=== PATIENT | male | born 1945 | race Caucasian/White ===

== ENCOUNTER 2017-10-22 09:43 | Inpatient (IN) ==
[2017-10-22] MEDS ORDERED: Sod Chloride 0.9% Inj 1,000 ML IV.SIG ONE (10:14)
[2017-10-22] MEDS ORDERED: Vancomycin Inj 1 GM/200 ML PIGGYBACK IV.SIG ONE (10:14)
--- NOTE | 2017-10-22 10:14 | ED ---
HPI General Chief complaint: Extremity Injury, Upper Stated complaint: Right hand pain Time Seen by Provider: 10/22/17 09:57 Source: patient, family and RN notes reviewed Mode of arrival: ambulatory History of Present Illness HPI narrative: 72yM presenting with right hand infection. The patient states that 4 days ago he had a Venofer injection and later that evening noticed redness and pain to his right hand. Since then, he says the area has gotten more swollen, painful, and the redness has spread up his forearm. Denies fever or chills but admits to nausea and 2-3 episodes of vomiting. (+) history of MRSA. Denies IVDA. Family history non-contributory. Related Data Home Medications Medication Instructions Recorded Confirmed No Known Home Medications 10/22/17 10/22/17 Allergies Allergy/AdvReac Type Severity Reaction Status Date / Time daptomycin [From Cubicin] Allergy Difficulty Verified 10/22/17 10:08 Breathing Review of Systems Except as stated in HPI: all other systems reviewed are negative Constitutional Denies fever(s) Eyes Denies blurry vision ENT Reports nasal congestion Cardiovascular Denies chest pain Respiratory Denies cough Gastrointestinal Reports nausea and Reports vomiting Genitourinary Denies dysuria Musculoskeletal Denies back pain Integumentary/Breasts Reports rash Neurologic Denies confusion Psychiatric Denies confusion PMFSH History History Provided By: Patient Medical History Medical History Myocardial infarction (Acute) Xzfkw-Xcytr-Axcxz disease (Acute) Surgical History Surgical History History of back surgery (Acute) Social History Social History Substance History: No History of Abuse Smoking Status: Never smoker How Often Do You Have a Drink Containing Alcohol: 2 to 4 times a month Recent Travel in [facility] within the Last 8 Weeks: No Recent Out of Country Travel within the Last 8 Weeks: No Exam Const General: healthy appearing and no acute distress [facility] Head: normocephalic and atraumatic Face and sinus: normal facial exam Eyes General: appearance normal, both eyes and all related structures Pupils: PERRL Chest Chest: normal inspection of the chest Resp Effort & Inspection: normal respiratory effort Auscultation: no rhonchi and no wheezes Cardio Rate: regular rate Rhythm: regular rhythm Other: Systolic murmur GI Inspection: non-distended Palpation: soft and nontender Skin Other: Erythema, tenderness, and swelling noted to right hand and forearm, circumferential with lymphangitic streaking up dorsum of forearm, no fluctuance , outlined with surgical marker by me Neuro General: alert, awake, oriented x3 and no focal motor deficits Extrem Other: Strong radial pulse and normal capillary refill to all digits Patient is able to flex/ extend all digits without difficulty, 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 Psych Affect: normal affect Course Initial Documented Vital Signs Temperature 98.2 F 10/22/17 09:46 Pulse Rate 88 10/22/17 09:46 Respiratory Rate 16 10/22/17 09:46 Blood Pressure 158/70 H 10/22/17 09:46 Pulse Oximetry 99 10/22/17 09:46 Last Documented Vital Signs Temperature 98.2 F 10/22/17 09:46 Pulse Rate 88 10/22/17 09:46 Respiratory Rate 16 10/22/17 09:46 Blood Pressure 158/70 H 10/22/17 09:46 Pulse Oximetry 99 10/22/17 09:46 Medical Decision Making [facility] Narrative Medical decision making narrative: Assessment: 72yM presenting with right hand swelling and pain Plan: IV Labs Antibiotics X-ray right hand Addendum: This patient cannot go home as he has circumferential cellulitis of the right hand with lymphangitic streaking up the arm. He will need IV antibiotics. Case discussed with family medicine residents, who will admit. Differential Diagnosis Differential Diagnosis: Differential diagnosis includes, but is not limited to: cellulitis/ recurrent MRSA infection, fracture Patient has no signs or symptoms of flexor tenosynovitis, septic joint, or abscess Lab Data Lab results reviewed: Yes I reviewed the patient's lab results. Result diagrams: 10/22/17 10:25 10/22/17 10:25 Lab Results 10/22/17 10/22/17 10/22/17 Range/Units 10:25 10:25 10:30 WBC 7.0 (4.0-11.0) th/mm3 RBC 4.71 (4.50-5.90) mil/mm3 Hgb 13.1 (13.0-17.0) gm/dL Hct 39.2 (39.0-51.0) % MCV 83.2 (80.0-100.0) fL MCH 27.8 (27.0-34.0) pg MCHC 33.4 (32.0-36.0) % RDW 20.5 H (11.6-17.2) % Plt Count 184 (150-450) th/mm3 MPV 7.7 (7.0-11.0) fL Prelim Diff (Auto) Slide review pending Neut % (Auto) 79.7 H (16.0-70.0) % Lymph % (Auto) 6.7 L (9.0-44.0) % [place] % (Auto) 12.3 H (0.0-8.0) % Eos % (Auto) 0.9 (0.0-4.0) % Baso % (Auto) 0.4 (0.0-2.0) % Neut # (Auto) 5.6 (1.8-7.7) th/mm3 Lymph # (Auto) 0.5 L (1.0-4.8) th/mm3 [place] # (Auto) 0.9 (0.0-0.9) th/mm3 Eos # (Auto) 0.1 (0.0-0.4) th/mm3 Baso # (Auto) 0.0 (0.0-0.2) th/mm3 WBC Differential . Diff Scan Auto diff confirmed Differential Comment . Ovalocytes 1+ H (None) Sodium 137 (136-145) meq/L Potassium 3.6 (3.5-5.1) meq/L Chloride 102 (98-107) meq/L Carbon Dioxide 28.3 (21.0-32.0) meq/L Anion Gap 7 (5-15) meq/L BUN 14 (7-18) mg/dL Creatinine 0.81 (0.60-1.30) mg/dL Estimated GFR Greater than 89 (>89) mL/min Random Glucose 135 H (74-106) mg/dL Lactic Acid 1.1 (0.4-2.0) mmol/L Calcium 8.7 (8.5-10.1) mg/dL Imaging Data Radiologist's impression: Hand X-Ray 10/22/17 10:14 CONCLUSION: 1. Soft tissue swelling over the dorsum of the hand with no radiopaque foreign body. 2. Osteoarthritic change. Discharge Plan Discharge Disposition Patient Disposition: 30 Still Patient Discharge Condition Condition: Stable Discharge Details Diagnosis: Cellulitis of hand, right Physicians Team ED Provider: Ara Freeman Rxs /Orders / Referrals /Forms Prescriptions: No Action No Known Home Medications RF: 0 Discharge Interventions Interventions: Vital Signs Last Done: 10/22/17 09:46 Status ED Status: With Doctor
[2017-10-22] MEDS ORDERED: Vancomycin Inj 1,000 MG in Sodium Chlor 0.9% Inj 250 ML IV.SIG ONE (10:30)
[2017-10-22 10:39] LABS: Baso % (Auto) 0.4 % (0.0-2.0); Eos # (Auto) 0.1 th/mm3 (0.0-0.4); Eos % (Auto) 0.9 % (0.0-4.0); Hematocrit 39.2 % (39.0-51.0); Hemoglobin 13.1 gm/dL (13.0-17.0); Lymph # (Auto) 0.5 th/mm3 (1.0-4.8); Lymph % (Auto) 6.7 % (9.0-44.0); Mean Corpuscular HGB Conc 33.4 % (32.0-36.0); Mean Corpuscular Hemoglobin 27.8 pg (27.0-34.0); Mean Corpuscular Volume 83.2 fL (80.0-100.0); Mean Platelet Volume 7.7 fL (7.0-11.0); Mono # (Auto) 0.9 th/mm3 (0.0-0.9); Mono % (Auto) 12.3 % (0.0-8.0); Neut # (Auto) 5.6 th/mm3 (1.8-7.7); Neut % (Auto) 79.7 % (16.0-70.0); Platelet Count 184 th/mm3 (150-450); Red Blood Count 4.71 mil/mm3 (4.50-5.90); Red Cell Distribution Width 20.5 % (11.6-17.2)
[2017-10-22 10:52] LABS: Anion Gap 7 meq/L (5-15); Blood Urea Nitrogen 14 mg/dL (7-18); Calcium 8.7 mg/dL (8.5-10.1); Carbon Dioxide 28.3 meq/L (21.0-32.0); Chloride 102 meq/L (98-107); Glomerular Filtration Rate Greater Than 89 mL/min (>89); Glucose,Random 135 mg/dL (74-106); Potassium 3.6 meq/L (3.5-5.1); Sodium 137 meq/L (136-145)
--- NOTE | 2017-10-22 10:59 | XR ---
EXAM DATE: 10/22/2017 10:47 AM EDT AGE/SEX: 72 years / Male INDICATIONS: Swelling, redness, and pain without trauma. CLINICAL DATA: This is the patient's initial encounter. Patient reports that signs and symptoms have been present for 3 days and indicates a pain score of 6/10. MEDICAL/SURGICAL HISTORY: None. None. COMPARISON: No prior exams available for comparison. FINDINGS: Multiple views of the right hand were obtained and demonstrate normal mineralization and alignment. T here is soft tissue swelling over the dorsum of the hand with no radiopaque foreign body. Degenerativ e changes are noted in the carpus greatest involving the radiocarpal joint with joint space loss, scl erosis and hypertrophic change. Degenerative changes are also noted in the interphalangeal joints. Th ere is no destructive change identified. CONCLUSION: 1. Soft tissue swelling over the dorsum of the hand with no radiopaque foreign body. 2. Osteoarthritic change. Electronically signed by: Mario Godinez MD 10/22/2017 10:57 AM EDT
[2017-10-22 11:40] LABS: Ovalocytes 1+
--- NOTE | 2017-10-22 11:56 | P.HPFP ---
History of Present Illness Service: Shady is a pleasant 72 year old male with PMH of MRSA infection of L abdomen, Diabetes and Osler Rendu Howard coming in with complaints of R arm pain. 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 The hand was swollen on night and the swelling increased everyday up his forearm. Today the swelling is up to his mid radius region. He describes the pain as sharp constant pain and rates it a 7/ 10 in severity. The pain seems to be constant but is aggravated when trying to use his fingers to pickle solution maker things and hand movements. The pain is relieved with ice pack applications. He has tried Aleve and Biofreeze with no relief. Denies any trauma to the R arm. Patient had some episodes of nausea and vomiting for the past two days. A couple times both days. Unsure of the color of emesis. He also said that he had an iron shot on afternoon. ROS positive for chills. Denies any fever, night sweats, chest pain, shortness of breath, ab pain , urinary symptoms. PMH: MRSA infection of L abdomen, Os[place] Rendu Howard, Diabetes, Low Iron, Osteoarthritis of the knee. PSH: Back Surgery (2014). Allergies: Cubicin (anaphylaxis) Med: Iron transfusions every 5-6 months. Aleve. Oxycodone 325 mg ( 1-3 a day). SH: Lives at home with . Feel safe at home. Sexually active with . Denies smoking cigarettes. Chews Tobacco one packet a day, Drinking:consumes 2- 3 beers a week, Drugs: none. Drove down from [place] to [facility] last night. Vaccinations: UTD. Has two dogs at home. <Alva Hicks - 10/22/17 19:30> Primary Care Physician: Yonatan Reid <Arabella Ortega - 10/22/17 20:50> Yonatan Reid <Alva Hicks - 10/22/17 11:56> - Diagnosis (1) Cellulitis of hand, right (2) Vqwrn-Mvemk-Uejpn disease (3) Diabetes (4) Arthritis (5) Nutrition, metabolism, and development symptoms (6) DVT prophylaxis <JordanArabella 10/22/17 20:50> (1) Cellulitis of hand, right (2) Ghrwx-Bemaj-Gmotv disease (3) Diabetes (4) Arthritis (5) Nutrition, metabolism, and development symptoms (6) DVT prophylaxis <KurtAlva 10/22/17 19:39> Review of Systems Constitutional: Reports chills, Denies fever(s), Denies headache(s), Denies weight gain, Denies weight loss <Alva Hicks 10/22/17 13:24> Cardiovascular: Denies chest pain <Alva Hicks 10/22/17 13:24> PMFSH - History History Provided By: Patient <Alva Hicks 10/22/17 11:56> - Medical History Medical History: Medical History (Last Updated 10/22/17 @ 10:10 by Porsha Diehl) Myocardial infarction Buxzi-Gxvak-Euhcs disease <Arabella Ortega 10/22/17 20:50> Medical History (Last Updated 10/22/17 @ 10:10 by Porsha Diehl) Myocardial infarction Qngxd-Ljjls-Bqmqc disease <Alva Hicks 10/22/17 11:56> - Surgical History Surgical History: Surgical History (Last Updated 10/22/17 @ 10:10 by Porsha Diehl) History of back surgery <Arabella Ortega 10/22/17 20:50> Surgical History (Last Updated 10/22/17 @ 10:10 by Porsha Diehl) History of back surgery <Alva Hicks 10/22/17 11:56> - Tobacco History Smoking Status: Never smoker <Alva Hicks 10/22/17 11:56> - Alcohol History How Often Do You Have a Drink Containing Alcohol: 2 to 4 times a month <Alva Hicks 10/22/17 11:56> - Substance Use History Substance History: No History of Abuse <Alva Hicks 10/22/17 11:56> - Travel History Recent Travel in the [facility] Within the Last 8 Weeks: No <Alva Hicks - 07/22/ 18 11:56> Recent Travel Out of the Country Within the Last 8 Weeks: No <Alva Hicks - 10/22/17 11:56> - Immunization History Tetanus Immunization: <5 Years <Alva Hicks - 10/22/17 11:56> Hx Influenza Vaccine This Season: No <Alva Hicks - 10/22/17 11:56> Medications and Allergies Allergies Allergy/AdvReac Type Severity Reaction Status Date / Time daptomycin [From Cubicin] Allergy Difficulty Verified 10/22/17 10:08 Breathing <Arabella Ortega - 10/22/17 20:50> Home Medications Medication Instructions Recorded Confirmed Type No Known Home Medications 10/22/17 10/22/17 History <Arabella Ortega - 10/22/17 20:50> Active Medications: Active Medications Acetaminophen (Tylenol) 650 mg PO Q6HR PRN PRN Reason: PAIN SCALE 1 TO 2 Al Hydroxide/Mg Hydroxide (Milk Of Magnesia Liq) 30 ml PO Q12H PRN PRN Reason: Mild Constipation Bisacodyl (Dulcolax Supp) 10 mg RECTAL DAILY PRN PRN Reason: SEVERE CONSITIPATION Dextrose (D50w Vial) 50 ml IV.PUSH UNSCH PRN PRN Reason: PER HYPOGLYCEMIA PROTOCOL Glucagon (Glucagon Inj) 1 mg OTHER PRN PRN PRN Reason: for Hypoglycemia Protocol Pharmacy Profile Note (Vancomycin Consult Pharmacy) 0 mls @ 0 mls/hr OTHER UNSCH OMI Vancomycin HCl 1,500 mg/ (Sodium Chloride) 515 mls @ 250 mls/hr IV.SIG Q12H OMI Last Admin: 10/22/17 17:59 Dose: 250 mls/hr Insulin Human Regular (Novolin R Correctional Sugar Inj) 0 units SQ ACHS AND 3AM OMI; Protocol Lactulose (Lactulose Liq) 30 ml PO DAILY PRN PRN Reason: SEVERE CONSITIPATION Miscellaneous Information ([facility] Ordered Lab Info) 0 each OTHER ONCE ONE Stop: 10/24/17 05:46 Naloxone HCl (Narcan Inj) 0.4 mg IV.PUSH UNSCH PRN PRN Reason: SEE LABEL COMMENTS Oxycodone/Acetaminophen (Percocet 10/325 Mg) 1 tab PO Q6H PRN PRN Reason: PAIN SCALE 6 TO 10 Oxycodone/Acetaminophen (Percocet 5/325 Mg) 1 tab PO Q6H PRN PRN Reason: PAIN SCALE 3 TO 5 Senna/Docusate Sodium (Leslie-Colace) 1 tab PO BID OMI Sennosides (Senokot) 17.2 mg PO Q12H PRN PRN Reason: Moderate Constipation Sodium Chloride (Ns Flush) 2 ml IV.FLUSH BID OMI Sodium Chloride (Ns Flush) 2 ml IV.FLUSH PRN PRN PRN Reason: FLUSH AFTER USING IV ACCESS Temazepam (Restoril) 15 mg PO HS PRN PRN Reason: INSOMNIA <Arabella Ortega - 10/22/17 20:50> Exam Vital signs: Vital Signs 10/22/17 09:46 10/22/17 12:00 10/22/17 13:30 Temperature 98.2 F Pulse Rate 88 82 78 Respiratory Rate 16 17 18 Blood Pressure 158/70 H 163/74 H 147/72 H Pulse Oximetry 99 99 99 10/22/17 16:00 10/22/17 20:00 Temperature 98.8 F 98.1 F Pulse Rate 96 H 91 H Respiratory Rate 18 18 Blood Pressure 157/74 H 156/81 H Pulse Oximetry 98 99 Intake & Output 10/22/17 10/22/17 10/23/17 06:59 18:59 06:59 Intake Total 1730 / 1730 Balance 1730 / 1730 Weight 83.915 kg Intake: IV 1250 / 1250 NS Inj 1,000 ML @ Wide Open IV. 1000 / 1000 SIG BOLUS ONE Rx#:[id number] Vancomycin Inj 1,000 MG In NS 250 / 250 Inj 250 ML @ 250 mls/hr IV.SIG ONCE ONE Rx#:[id number] Oral 480 / 480 Other: # Voids 1 # Bowel Movements 0 <Kimberly Ortegae - 10/22/17 20:50> Vital Signs 10/22/17 09:46 Temperature 98.2 F Pulse Rate 88 Respiratory Rate 16 Blood Pressure 158/70 H Pulse Oximetry 99 Intake & Output 10/21/17 10/22/17 10/22/17 18:59 06:59 18:59 Weight 83.915 kg <Alva Hicks - 10/22/17 11:56> - Routine HEENT Exam Head: Present: normocephalic, atraumatic <Alva Hicks - 10/22/17 17:47> - Routine Respiratory Exam Present: CTA bilaterally. Absent: rhonchi, wheezes <Alva Hicks - 17:47> - Routine Cardiovascular Exam Present: RRR, S1, S2 <Alva Hicks - 10/22/17 17:47> - Routine Abdominal Exam Present: soft, normoactive bowel sounds <Alva Hicks - 10/22/17 17:47> - Routine Skin Exam Comments: 13 cm erythematous swollen right hand that is warm to the touch and painful to palpation. The skin is taut and patient has limited movement of the hand. 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 Radial pulses are intact, faint but present, most likely due to the swelling of the hand. <Alva Hicks - 10/22/17 17:47> Results - Labs Result diagrams: 10/22/17 10:25 10/22/17 10:25 <Arabella Ortega - 10/22/17 20:50> Abnormal lab results 10/22/17 10/22/17 10/22/17 Range/Units 10:25 10:25 17:58 RDW 20.5 H (11.6-17.2) % Neut % (Auto) 79.7 H (16.0-70.0) % Lymph % (Auto) 6.7 L (9.0-44.0) % [place] % (Auto) 12.3 H (0.0-8.0) % Lymph # (Auto) 0.5 L (1.0-4.8) th/mm3 Ovalocytes 1+ H (None) POC Glucose 183 H (68-110) mg/dl Random Glucose 135 H (74-106) mg/dL Short CBC 10/22/17 Range/Units 10:25 WBC 7.0 (4.0-11.0) th/mm3 Hgb 13.1 (13.0-17.0) gm/dL Hct 39.2 (39.0-51.0) % Plt Count 184 (150-450) th/mm3 [facility] 10/22/17 10:25 Sodium 137 Potassium 3.6 Chloride 102 Carbon Dioxide 28.3 BUN 14 Creatinine 0.81 Calcium 8.7 <Arabella Ortega - 10/22/17 20:50> Abnormal lab results 10/22/17 10/22/17 Range/Units 10:25 10:25 RDW 20.5 H (11.6-17.2) % Neut % (Auto) 79.7 H (16.0-70.0) % Lymph % (Auto) 6.7 L (9.0-44.0) % [place] % (Auto) 12.3 H (0.0-8.0) % Lymph # (Auto) 0.5 L (1.0-4.8) th/mm3 Ovalocytes 1+ H (None) Random Glucose 135 H (74-106) mg/dL Short CBC 10/22/17 Range/Units 10:25 WBC 7.0 (4.0-11.0) th/mm3 Hgb 13.1 (13.0-17.0) gm/dL Hct 39.2 (39.0-51.0) % Plt Count 184 (150-450) th/mm3 BMP 10/22/17 10:25 Sodium 137 Potassium 3.6 Chloride 102 Carbon Dioxide 28.3 BUN 14 Creatinine 0.81 Calcium 8.7 <Alva Hicks - 10/22/17 11:56> - Imaging Impressions Forearm MRI 10/22/17 00:00 CONCLUSION: 1. Cellulitis of the forearm and hand, especially on the dorsal aspect without definite abscess formation. There is also an associated myositis of the distal forearm. No evidence for osteomyelitis. 2. 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 Hand X-Ray 10/22/17 10:14 CONCLUSION: 1. Soft tissue swelling over the dorsum of the hand with no radiopaque foreign body. 2. Osteoarthritic change. <Arabella Ortega - 10/22/17 20:50> Impressions Hand X-Ray 10/22/17 10:14 CONCLUSION: 1. Soft tissue swelling over the dorsum of the hand with no radiopaque foreign body. 2. Osteoarthritic change. <Alva Hicks - 10/22/17 11:56> Caprini VTE Risk Assessment Caprini VTE Risk Assessment: No/Low Risk (score <= 1) <Alva Hicks - 17:47> Caprini Risk Assessment Model: Point Value = 1 Point Value = 2 Point Value = 3 Point Value = 5 Age 41-60 Minor surgery BMI > 25 kg/m2 Swollen legs Varicose veins or History of unexplained or recurrent spontaneous Oral contraceptives or hormone replacement Sepsis (< 1 month) Serious lung disease, including pneumonia (< 1 month) Abnormal pulmonary function Acute myocardial infarction Congestive heart failure (< 1 month) History of inflammatory bowel disease Medical patient at bed rest Age 61-74 Arthroscopic surgery Major open surgery (> 45 min) Laparoscopic surgery (> 45 min) Malignancy Confined to bed (> 72 hours) Immobilizing plaster cast Central venous access Age >= 75 History of VTE Family history of VTE Factor V Leiden Prothrombin [id number] Lupus anticoagulant Anticardiolipin antibodies Elevated serum homocysteine Heparin-induced thrombocytopenia Other congenital or acquired thrombophilia Stroke (< 1 month) Elective arthroplasty Hip, pelvis, or leg fracture Acute spinal cord injury (< 1 month) <Arabella Ortega - 10/22/17 20:50> Point Value = 1 Point Value = 2 Point Value = 3 Point Value = 5 Age 41-60 Minor surgery BMI > 25 kg/m2 Swollen legs Varicose veins or History of unexplained or recurrent spontaneous Oral contraceptives or hormone replacement Sepsis (< 1 month) Serious lung disease, including pneumonia (< 1 month) Abnormal pulmonary function Acute myocardial infarction Congestive heart failure (< 1 month) History of inflammatory bowel disease Medical patient at bed rest Age 61-74 Arthroscopic surgery Major open surgery (> 45 min) Laparoscopic surgery (> 45 min) Malignancy Confined to bed (> 72 hours) Immobilizing plaster cast Central venous access Age >= 75 History of VTE Family history of VTE Factor V Leiden Prothrombin [id number] Lupus anticoagulant Anticardiolipin antibodies Elevated serum homocysteine Heparin-induced thrombocytopenia Other congenital or acquired thrombophilia Stroke (< 1 month) Elective arthroplasty Hip, pelvis, or leg fracture Acute spinal cord injury (< 1 month) <Alva Hicks - 10/22/17 11:56> Prophylaxis Regimen: Total Risk Factor Score Risk Level Prophylaxis Regimen 0-1 Low Early ambulation 2 Moderate Order ONE of the following: *Sequential Compression Device (SCD) *Heparin 5000 units SQ BID 3-4 Higher Order ONE of the following medications: *Heparin 5000 units SQ TID *Enoxaparin/Lovenox 40 mg SQ daily (WT < 150 kg, CrCl > 30 mL/min) *Enoxaparin/Lovenox 30 mg SQ daily (WT < 150 kg, CrCl > 10-29 mL/min) *Enoxaparin/Lovenox 30 mg SQ BID (WT < 150 kg, CrCl > 30 mL/min) AND/OR *Sequential Compression Device (SCD) 5 or more Highest Order ONE of the following medications: *Heparin 5000 units SQ TID (Preferred with Epidurals) *Enoxaparin/Lovenox 40 mg SQ daily (WT < 150 kg, CrCl > 30 mL/min) *Enoxaparin/Lovenox 30 mg SQ daily (WT < 150 kg, CrCl > 10-29 mL/min) *Enoxaparin/Lovenox 30 mg SQ BID (WT < 150 kg, CrCl > 30 mL/min) AND *Sequential Compression Device (SCD) <Arabella Ortega - 10/22/17 20:50> Total Risk Factor Score Risk Level Prophylaxis Regimen 0-1 Low Early ambulation 2 Moderate Order ONE of the following: *Sequential Compression Device (SCD) *Heparin 5000 units SQ BID 3-4 Higher Order ONE of the following medications: *Heparin 5000 units SQ TID *Enoxaparin/Lovenox 40 mg SQ daily (WT < 150 kg, CrCl > 30 mL/min) *Enoxaparin/Lovenox 30 mg SQ daily (WT < 150 kg, CrCl > 10-29 mL/min) *Enoxaparin/Lovenox 30 mg SQ BID (WT < 150 kg, CrCl > 30 mL/min) AND/OR *Sequential Compression Device (SCD) 5 or more Highest Order ONE of the following medications: *Heparin 5000 units SQ TID (Preferred with Epidurals) *Enoxaparin/Lovenox 40 mg SQ daily (WT < 150 kg, CrCl > 30 mL/min) *Enoxaparin/Lovenox 30 mg SQ daily (WT < 150 kg, CrCl > 10-29 mL/min) *Enoxaparin/Lovenox 30 mg SQ BID (WT < 150 kg, CrCl > 30 mL/min) AND *Sequential Compression Device (SCD) <Alva Hicks - 10/22/17 11:56> Assessment and Plan - Assessment (1) Cellulitis of hand, right Code(s): L03.113 - Cellulitis of right upper limb Status: Acute (2) Zmuzj-Kuneu-Cjgtc disease Code(s): 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 Swelling present 13 cm up his R forearm, about mid radius. Patient is currently afebrile but states he had chills yesterday. Possibly cellulitis. Started on vancomycin IV. Xray of Hand: Negative for any fractures or trauma MRI of right hand ordered. Continue to monitor for increased swelling of the hand and limited ROM. Follow Up CBC in AM. 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 Patient at increased risk of bleeding due to disorder. SCD's Only for DVT Prophylaxis. Continue current management. (3) Diabetes Code(s): E11.9 - Type 2 diabetes mellitus without complications Status: Acute Plan: Added Novolin sliding scale for coverage. Follow-up hemoglobin A1c and CMP in a.m. Monitor Blood Glucose Values Overnight (4) Arthritis Code(s): M19.90 - Unspecified osteoarthritis, unspecified site Status: Acute Plan: Osteoarthritis of Knees. Currently Stable. Continue Current regimen. (5) Nutrition, metabolism, and development symptoms Code(s): R63.8 - Other symptoms and signs concerning food and fluid intake Status: Acute Plan: Fluids: tolerating Po Electrolytes: Monitor and replete as needed Nutrition: Waiting on MRI status. If normal will place on a regular diet. GI Prophylaxis: None (6) DVT prophylaxis Status: Acute Plan: SCDs only <Alva Hicks - 10/22/17 19:39> - Attending Attestation Patient seen and examined this afternoon, discussed with resident team. I agree with assessment and management as documented and discussed with me. I certify that the inpatient services were ordered in accordance with Medicare regulations governing the order. This includes certification that hospital inpatient services are reasonable and necessary and in the case of services not specified as inpatient-only under 42 CFR 419.22(n), that they are appropriately provided as inpatient services in accordance to with the 2-midnight benchmark under 43 CFR 412.3(e) Pt admitted for right hand cellulitis. He has a known h/o MRSA. Additional documentation: ROS: + hand pain. + numbness/tingling in his Right fingers. No fevers. All other systems reviewed are negative. Pt has been started on IV antibiotics, specifically Vancomycin. MRI of forearm demonstrated no abscess, but did show myositis. Consider hand surgery consult. <Arabella Ortega - 10/22/17 20:50>
[2017-10-22] MEDS ORDERED: Bisacodyl 10 MG Supp RECTAL PRN (12:34)
[2017-10-22] MEDS ORDERED: Vancomycin Consult Pharmacy 1 EACH OTHER SCH (13:00)
[2017-10-22] MEDS ORDERED: Gadobutrol PF 10 MMOL/10 ML Vial (for RAD) IV.SIG ONE (17:35)
[2017-10-22] MEDS ORDERED: Dextrose 50% in Water 50 ML Vial IV.PUSH PRN (17:45)
[2017-10-22] MEDS: Vancomycin Inj 1,500 MG in Sodium Chlor 0.9% Inj 500 ML IV.SIG SCH (17:59)
--- NOTE | 2017-10-22 18:01 | MR ---
EXAM DATE: 10/22/2017 5:51 PM EDT AGE/SEX: 72 years / Male INDICATIONS: Pain, redness, and swelling right distal forearm and dorsal aspect of hand. No known i njury. CLINICAL DATA: This is the patient's initial encounter. Patient reports that signs and symptoms have been present for 2 days and indicates a pain score of 5/10. MEDICAL/SURGICAL HISTORY: . MRSA. Uxwmr-Gozer-Mxgqhc. ND Fusion, lumbar. COMPARISON: No prior exams available for comparison. TECHNIQUE: Multiplanar, multisequence MRI examination was performed without and with 8cc ml Gadavist (gadobutrol) contrast as single exam dose. FINDINGS: There is subcutaneous edema in the hand, especially on the dorsum of the hand and extending into the forearm especially dorsally. There is also some mild edema in the forearm musculature especially on t he dorsal aspect and in the interosseous region. No significant loculated fluid is identified to sugg est drainable abscess. There is no significant marrow signal abnormality to suggest osteomyelitis. Th ere is moderate to advanced osteoarthritis of the wrist joint especially on the radial aspect and to a lesser extent at the intercarpal joints and first carpometacarpal joint. CONCLUSION: 1. Cellulitis of the forearm and hand, especially on the dorsal aspect without definite abscess form ation. There is also an associated myositis of the distal forearm. No evidence for osteomyelitis. 2. 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 Electronically signed by: Tunde Kimble MD 10/22/2017 6:00 PM EDT
[2017-10-22] MEDS ORDERED: Naloxone Inj 0.4 MG/ML Vial IV.PUSH PRN (20:04)
[2017-10-22] MEDS ORDERED: Acetaminophen 325 MG Tablet PO PRN (20:04)
[2017-10-22] MEDS: Senna/Docusate Sodium 8.6/50 MG Tablet PO SCH (21:03)
[2017-10-22] MEDS: oxyCODONE/Acetaminophen 10/325 Tablet PO PRN (21:03)
[2017-10-22] MEDS: Insulin NovoLIN Regular Correctional Sugar Inj SQ SCH (21:13)
[2017-10-23] MEDS ORDERED: Naloxone Inj 0.4 MG/ML Vial IV.PUSH PRN (02:20)
[2017-10-23] MEDS ORDERED: Morphine Inj 4 MG/ML Vial IV.PUSH PRN (02:20)
[2017-10-23] MEDS: oxyCODONE/Acetaminophen 10/325 Tablet PO PRN ×5 (02:34→22:09)
[2017-10-23] MEDS: Insulin NovoLIN Regular Correctional Sugar Inj SQ SCH ×4 (02:39→16:58)
[2017-10-23] MEDS: Vancomycin Inj 1,500 MG in Sodium Chlor 0.9% Inj 500 ML IV.SIG SCH ×2 (06:20→17:09)
[2017-10-23 08:16] LABS: Baso % (Auto) 0.6 % (0.0-2.0); Eos # (Auto) 0.1 th/mm3 (0.0-0.4); Eos % (Auto) 1.8 % (0.0-4.0); Hematocrit 35.5 % (39.0-51.0); Hemoglobin 11.7 gm/dL (13.0-17.0); Lymph # (Auto) 0.9 th/mm3 (1.0-4.8); Lymph % (Auto) 14.8 % (9.0-44.0); Mean Corpuscular HGB Conc 33.1 % (32.0-36.0); Mean Corpuscular Hemoglobin 27.4 pg (27.0-34.0); Mean Corpuscular Volume 82.9 fL (80.0-100.0); Mono # (Auto) 0.8 th/mm3 (0.0-0.9); Mono % (Auto) 13.5 % (0.0-8.0); Neut # (Auto) 4.1 th/mm3 (1.8-7.7); Neut % (Auto) 69.3 % (16.0-70.0); Platelet Count 169 th/mm3 (150-450); Red Blood Count 4.28 mil/mm3 (4.50-5.90); Red Cell Distribution Width 19.9 % (11.6-17.2); White Blood Count 5.9 th/mm3 (4.0-11.0)
[2017-10-23] MEDS: Senna/Docusate Sodium 8.6/50 MG Tablet PO SCH (08:21)
[2017-10-23 08:42] LABS: Anion Gap 6 meq/L (5-15); Blood Urea Nitrogen 10 mg/dL (7-18); Calcium 8.3 mg/dL (8.5-10.1); Carbon Dioxide 27.2 meq/L (21.0-32.0); Chloride 104 meq/L (98-107); Glomerular Filtration Rate Greater Than 89 mL/min (>89); Glucose,Random 113 mg/dL (74-106); Potassium 3.6 meq/L (3.5-5.1); Sodium 137 meq/L (136-145)
--- NOTE | 2017-10-23 12:55 | P.PNFP ---
Subjective Interval history: Patient was seen and examined this morning. He still complains of swelling and pain in the right arm with movements. He feels as though the swelling is increasing up his right forearm. It is tender to palpation. He denies any nausea or vomiting overnight. No other events occurred overnight. He is unsure of his last tetanus shot. He denies any chest pain, fevers, shortness of breath, abdominal pain, problems with urination. All questions and concerns were answered this morning. <Alva Hicks - 10/23/17 13:11> Results - Labs Result diagrams: 10/23/17 07:07 10/23/17 07:07 <Arabella Ortega - 10/23/17 20:49> Abnormal lab results 10/22/17 10/23/17 10/23/17 Range/Units 21:10 02:38 07:07 RBC (4.50-5.90) mil/mm3 Hgb (13.0-17.0) gm/dL Hct (39.0-51.0) % RDW (11.6-17.2) % Childress % (Auto) (0.0-8.0) % Lymph # (Auto) (1.0-4.8) th/mm3 ESR 37 H (0-20) mm/hr POC Glucose 172 H 148 H (68-110) mg/dl Random Glucose (74-106) mg/dL Calcium (8.5-10.1) mg/dL 10/23/17 10/23/17 10/23/17 Range/Units 07:07 07:07 08:18 RBC 4.28 L (4.50-5.90) mil/mm3 Hgb 11.7 L (13.0-17.0) gm/dL Hct 35.5 L (39.0-51.0) % RDW 19.9 H (11.6-17.2) % Childress % (Auto) 13.5 H (0.0-8.0) % Lymph # (Auto) 0.9 L (1.0-4.8) th/mm3 ESR (0-20) mm/hr POC Glucose 118 H (68-110) mg/dl Random Glucose 113 H (74-106) mg/dL Calcium 8.3 L (8.5-10.1) mg/dL 10/23/17 10/23/17 10/23/17 Range/Units 11:29 16:40 20:28 RBC (4.50-5.90) mil/mm3 Hgb (13.0-17.0) gm/dL Hct (39.0-51.0) % RDW (11.6-17.2) % Childress % (Auto) (0.0-8.0) % Lymph # (Auto) (1.0-4.8) th/mm3 ESR (0-20) mm/hr POC Glucose 129 H 139 H 115 H (68-110) mg/dl Random Glucose (74-106) mg/dL Calcium (8.5-10.1) mg/dL Short CBC 10/23/17 Range/Units 07:07 WBC 5.9 (4.0-11.0) th/mm3 Hgb 11.7 L (13.0-17.0) gm/dL Hct 35.5 L (39.0-51.0) % Plt Count 169 (150-450) th/mm3 [facility] 10/23/17 07:07 Sodium 137 Potassium 3.6 Chloride 104 Carbon Dioxide 27.2 BUN 10 Creatinine 0.67 Calcium 8.3 L <Arabella Ortega - 10/23/17 20:49> Abnormal lab results 10/22/17 10/22/17 10/23/17 Range/Units 17:58 21:10 02:38 RBC (4.50-5.90) mil/mm3 Hgb (13.0-17.0) gm/dL Hct (39.0-51.0) % RDW (11.6-17.2) % Childress % (Auto) (0.0-8.0) % Lymph # (Auto) (1.0-4.8) th/mm3 ESR (0-20) mm/hr POC Glucose 183 H 172 H 148 H (68-110) mg/dl Random Glucose (74-106) mg/dL Calcium (8.5-10.1) mg/dL 10/23/17 10/23/17 10/23/17 Range/Units 07:07 07:07 07:07 RBC 4.28 L (4.50-5.90) mil/mm3 Hgb 11.7 L (13.0-17.0) gm/dL Hct 35.5 L (39.0-51.0) % RDW 19.9 H (11.6-17.2) % Childress % (Auto) 13.5 H (0.0-8.0) % Lymph # (Auto) 0.9 L (1.0-4.8) th/mm3 ESR 37 H (0-20) mm/hr POC Glucose (68-110) mg/dl Random Glucose 113 H (74-106) mg/dL Calcium 8.3 L (8.5-10.1) mg/dL 10/23/17 10/23/17 Range/Units 08:18 11:29 RBC (4.50-5.90) mil/mm3 Hgb (13.0-17.0) gm/dL Hct (39.0-51.0) % RDW (11.6-17.2) % Childress % (Auto) (0.0-8.0) % Lymph # (Auto) (1.0-4.8) th/mm3 ESR (0-20) mm/hr POC Glucose 118 H 129 H (68-110) mg/dl Random Glucose (74-106) mg/dL Calcium (8.5-10.1) mg/dL Short CBC 10/23/17 Range/Units 07:07 WBC 5.9 (4.0-11.0) th/mm3 Hgb 11.7 L (13.0-17.0) gm/dL Hct 35.5 L (39.0-51.0) % Plt Count 169 (150-450) th/mm3 BMP 10/23/17 07:07 Sodium 137 Potassium 3.6 Chloride 104 Carbon Dioxide 27.2 BUN 10 Creatinine 0.67 Calcium 8.3 L <Alva Hicks - 10/23/17 12:55> - Imaging Impressions Forearm MRI 10/22/17 00:00 CONCLUSION: 1. Cellulitis of the forearm and hand, especially on the dorsal aspect without definite abscess formation. There is also an associated myositis of the distal forearm. No evidence for osteomyelitis. 2. 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 <Alva Hicks - 10/23/17 12:55> Physical Exam Vital signs: Vital Signs 10/23/17 00:00 10/23/17 04:00 10/23/17 07:15 Temperature 98.3 F 97.5 F L Pulse Rate 76 73 Respiratory Rate 18 18 16 Blood Pressure 142/65 H 126/58 L Pulse Oximetry 97 95 10/23/17 09:56 10/23/17 12:24 10/23/17 15:16 Temperature 97.7 F 97.1 F L 98 F Pulse Rate 76 80 74 Respiratory Rate 19 19 19 Blood Pressure 127/64 132/63 136/65 Pulse Oximetry 99 100 97 Intake & Output 10/23/17 10/23/17 10/24/17 06:59 18:59 06:59 Intake Total 515 / 515 1475 / 1475 Balance 515 / 515 1475 / 1475 Intake: IV 515 / 515 515 / 515 Vancomycin Inj 1,500 MG In NS 515 / 515 515 / 515 Inj 500 ML @ 250 mls/hr IV.SIG Q12H OMI Rx#:[id number] Oral 960 / 960 Other: # Voids 1 2 # Bowel Movements 1 Weight On Admission 83.915 kg <Arabella Ortega - 10/23/17 20:49> Vital Signs 10/22/17 13:30 10/22/17 16:00 10/22/17 20:00 Temperature 98.8 F 98.1 F Pulse Rate 78 96 H 91 H Respiratory Rate 18 18 18 Blood Pressure 147/72 H 157/74 H 156/81 H Pulse Oximetry 99 98 99 10/23/17 00:00 10/23/17 04:00 10/23/17 07:15 Temperature 98.3 F 97.5 F L Pulse Rate 76 73 Respiratory Rate 18 18 16 Blood Pressure 142/65 H 126/58 L Pulse Oximetry 97 95 10/23/17 09:56 10/23/17 12:24 Temperature 97.7 F 97.1 F L Pulse Rate 76 80 Respiratory Rate 19 19 Blood Pressure 127/64 132/63 Pulse Oximetry 99 100 Intake & Output 10/22/17 10/23/17 10/23/17 18:59 06:59 18:59 Intake Total 1730 / 1730 515 / 515 515 / 515 Balance 1730 / 1730 515 / 515 515 / 515 Weight 83.915 kg Intake: IV 1250 / 1250 515 / 515 515 / 515 NS Inj 1,000 ML @ Wide Open IV. 1000 / 1000 SIG BOLUS ONE Rx#:[id number] Vancomycin Inj 1,000 MG In NS 250 / 250 Inj 250 ML @ 250 mls/hr IV.SIG ONCE ONE Rx#:[id number] Vancomycin Inj 1,500 MG In NS 515 / 515 515 / 515 Inj 500 ML @ 250 mls/hr IV.SIG Q12H OMI Rx#:[id number] Oral 480 / 480 Other: # Voids 1 1 # Bowel Movements 0 Weight On Admission 83.915 kg <Alva Hicks 10/23/17 12:55> Narrative: General: Elderly male sitting in bed in no acute distress. <Alva Hicks 10/23/17 13:02> - Routine HEENT Exam Head: Present: normocephalic, atraumatic <Alva Hicks 10/23/17 13:02> - Routine Respiratory Exam Present: CTA bilaterally <Alva Hicks 10/23/17 13:02> - Routine Cardiovascular Exam Present: RRR, S1, S2 <Alva Hicks 10/23/17 13:02> - Routine Abdominal Exam Present: soft, normoactive bowel sounds <Alva Hicks 10/23/17 13:02> - Routine Skin Exam Comments: 14 cm swollen right hand that is warm to the touch and tender to palpation. The swelling is less erythematous today but has increased further up the forearm. The skin is taut and patient has limited movement of the hand. Limited pressure washer strength due to tightness of the skin from swelling. Radial pulses are palpable and stronger today. Sensation to light touch decreased on the right compared to the left hand. Patient unable to make a fist with the right hand. 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 Swelling present 14 cm up his R forearm, about mid radius. Patient is currently afebrile. No events overnight. MRI of hand: Cellulitis of the forearm and hand, especially on the dorsal aspect without defined abscess formation. There is also an associated myositis of the distal forearm. No evidence of osteomyelitis. Cellulitis: Continue on vancomycin IV for MRSA coverage. Hand surgery consulted due to concerns of myositis. Appreciate recommendations. Tdap vaccination: Concerns of tetanus with ongoing cellulitis. Patient unaware last tetanus shot. Tdap vaccination ordered. Xray of Hand: Negative for any fractures or trauma Continue to monitor for increased swelling of the hand and limited ROM. Follow Up CBC in AM. Follow Up Blood Cultures: Currently no growth in 1 day. 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 Patient at increased risk of bleeding due to disorder. SCD's Only for DVT Prophylaxis. Continue current management. (3) Diabetes Code(s): E11.9 - Type 2 diabetes mellitus without complications Status: Acute Plan: Continue Novolin sliding scale for coverage. Continue to monitor Blood Glucose Values (4) Arthritis Code(s): M19.90 - Unspecified osteoarthritis, unspecified site Status: Acute Plan: Osteoarthritis of Knees. Currently Stable. Continue Current regimen. (5) Nutrition, metabolism, and development symptoms Code(s): R63.8 - Other symptoms and signs concerning food and fluid intake Status: Acute Plan: Fluids: tolerating Po Electrolytes: Monitor and replete as needed Nutrition: regular diet. GI Prophylaxis: None (6) DVT prophylaxis Status: Acute Plan: SCDs only <Alva Hicks - 10/23/17 16:39> - Attending Attestation Patient seen, examined, and discussed this morning with resident team. I agree with assessment and management as documented with me. Pt feels the swelling, pain, and redness of his right hand are about the same as yesterday. Discussed with patient (and at bedside) that we will consult hand surgery, due to myositis seen on MRI forearm. <Arabella Ortega - 10/23/17 20:49>
[2017-10-23] MEDS ORDERED: Diphtheria/Tetanus/Pertussis Vaccine Inj 0.5 ML Syringe IM ONE (14:00)
--- NOTE | 2017-10-23 14:37 | MB ---
cc: Sherley Hopkins MD DATE: 10/23/2017 DATE OF CONSULTATION: 10/23/2017 REQUESTING PHYSICIAN: Patient is being seen at the request of Dr. Arabella Ortega. REASON FOR CONSULTATION: Inflammation and myositis and infection of the right hand and wrist. HISTORY OF PRESENT ILLNESS: The patient is a 72-year-old male who was admitted yesterday for cellulitis of his right hand. The patient notes that the problem began approximately 1 week ago. Over Monday or Monday, he noticed swelling and pain in the hand. 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 At that time, he also began to feel ill with nausea and dizziness. The patient is from [place] and has a time share and traveled on Monday, 2 days ago, with his family and just began to notice increased pain and swelling in his right wrist and also he began to feel less well. He came in yesterday morning complaining of pain in the right arm, along with redness and swelling, which had not improved. The patient was admitted and started on intravenous antibiotics. The patient feels that his condition has progressed and has not improved despite approximately 24 hours of antibiotics. Consultation is requested regarding evaluation and treatment of the patient. PAST MEDICAL HISTORY: The patient is otherwise well. ALLERGIES: DAPTOMYCIN. MEDICATIONS: Listed on the chart. PAST MEDICAL HISTORY: He denies high blood pressure, diabetes, heart disease, kidney disease, liver disease. 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 He is also a type 2 diabetic and also notes osteoarthritis of his knee and osteoarthritis of his right wrist. PAST SURGICAL HISTORY: He had back surgery in 2013. SOCIAL HISTORY: The patient lives at home with his . He chews tobacco. Consumes alcohol on a social basis. PHYSICAL EXAMINATION: GENERAL: The patient is sitting comfortably in bed. VITAL SIGNS: His temperature is 97.1, pulse rate is 80, respirations are 19, blood pressure is 132/63 and his pulse oximetry is 100 on room air. HEENT: Extraocular muscles are intact. His pupils are equal, round and reactive to light. His mouth is clear. NECK: Supple without masses. LUNGS: Clear. HEART: Has a regular rate and rhythm. EXTREMITIES: Examination of his right hand reveals swelling dorsally. There is redness. It is uniform. The area on the radial side of the wrist where the patient indicates that it started is swollen, but there is no fluctuance, no pointing. He is able to flex and extend his wrist, although it is limited, which he notes is due to his arthritis. He is able to move his fingers, but again they are limited due to the swelling and pain. There is some redness dorsally on his arm, but there does not appear to be a significant amount of swelling. The swelling does appear to be limited to the area of the wrist and distally to the MP joints of his fingers. LABORATORY DATA: The patient's white count on admission was 7.0 with 79.7% neutrophils. It is now 5.9 with 69.3% neutrophils, for an absolute amount of 4.1, reduced from 5.6. The patient did have a sedimentation rate, which was noted to be elevated and the sedimentation rate was 37, which is elevated. IMAGING STUDIES: Review of the x-rays of his hand revealed evidence of severe degenerative arthritis at the radiocarpal joint as well as the midcarpal joint. There is evidence of fragmentation, complete loss of the articulation. An MRI was performed. No abscess was noted, although there was some myositis present. IMPRESSION: 1. The patient does appear to have a cellulitis of his wrist. 2. The differential would be an inflammatory condition. PLAN: I would continue with the intravenous antibiotics and look for clinical improvement. One might also consider intravenous steroids if there is not a significant response to the steroids. Of note is that the condition Dbhukb-Znxny-Gtjry is said to possibly lead to a mild immunodeficiency. MD RENNY Ortega/MORAIMA , 01:47 PM , 02:36 PM
[2017-10-23] MEDS: Temazepam 15 MG Capsule PO PRN (22:10)
[2017-10-24] MEDS: Insulin NovoLIN Regular Correctional Sugar Inj SQ SCH ×6 (04:29→23:30)
[2017-10-24] MEDS: Senna/Docusate Sodium 8.6/50 MG Tablet PO SCH ×3 (04:29→21:13)
[2017-10-24] MEDS ORDERED: Pharmacy Ordered Lab Info OTHER ONE (05:45)
[2017-10-24] MEDS: Vancomycin Inj 1,500 MG in Sodium Chlor 0.9% Inj 500 ML IV.SIG SCH (05:45)
[2017-10-24] MEDS: oxyCODONE/Acetaminophen 10/325 Tablet PO PRN ×4 (05:45→21:14)
[2017-10-24 07:56] LABS: Hematocrit 36.1 % (39.0-51.0); Mean Corpuscular HGB Conc 33.2 % (32.0-36.0); Mean Corpuscular Hemoglobin 27.9 pg (27.0-34.0); Mean Corpuscular Volume 83.9 fL (80.0-100.0); Mean Platelet Volume 8.1 fL (7.0-11.0); Platelet Count 183 th/mm3 (150-450); Red Blood Count 4.31 mil/mm3 (4.50-5.90); Red Cell Distribution Width 19.8 % (11.6-17.2)
[2017-10-24 08:16] LABS: Alanine Aminotransferase 12 U/L (12-78); Albumin 2.6 g/dL (3.4-5.0); Aspartate Aminotransferase 6 U/L (15-37); Blood Urea Nitrogen 10 mg/dL (7-18); Glomerular Filtration Rate Greater Than 89 mL/min (>89); Glucose,Random 118 mg/dL (74-106)
[2017-10-24 08:53] LABS: Alkaline Phosphatase 59 U/L (45-117); Anion Gap 7 meq/L (5-15); Chloride 102 meq/L (98-107); Potassium 3.5 meq/L (3.5-5.1); Sodium 136 meq/L (136-145); Total Protein 6.3 g/dL (6.4-8.2)
[2017-10-24] MEDS ORDERED: MethylPREDNISolone Sod Succinate Inj 125 MG/2 ML Vial IV.PUSH ONE (11:11)
--- NOTE | 2017-10-24 14:39 | P.PNFP ---
Subjective Interval history: Patient seen and evaluated at bedside this morning. He states that the pain in his right arm continues to be the same as yesterday but the swelling has increased closer to his elbow today. He has been using cold paper towels over the area with some relief of the pain. He states that he is keeping the arm elevated overnight. He still has limited movement of the forearm. He denies any chest pain, shortness of breath, abdominal pain, problems with urination. Patient is wondering when he can go home. All questions and concerns were answered at bedside. <Alva Hicks - 10/24/17 14:39> Results - Labs Result diagrams: 10/24/17 07:05 10/24/17 07:05 <Arabella Ortega - 10/24/17 20:03> Abnormal lab results 10/23/17 10/24/17 10/24/17 Range/Units 20:28 07:05 07:05 RBC 4.31 L (4.50-5.90) mil/mm3 Hgb 12.0 L (13.0-17.0) gm/dL Hct 36.1 L (39.0-51.0) % RDW 19.8 H (11.6-17.2) % ESR (0-20) mm/hr POC Glucose 115 H (68-110) mg/dl Random Glucose (74-106) mg/dL Calcium (8.5-10.1) mg/dL AST (15-37) U/L Total Protein (6.4-8.2) g/dL Albumin (3.4-5.0) g/dL Vancomycin Trough 19.9 H (5.0-10.0) mcg/mL 10/24/17 10/24/17 10/24/17 Range/Units 07:05 09:15 12:50 RBC (4.50-5.90) mil/mm3 Hgb (13.0-17.0) gm/dL Hct (39.0-51.0) % RDW (11.6-17.2) % ESR 50 H (0-20) mm/hr POC Glucose 127 H (68-110) mg/dl Random Glucose 118 H (74-106) mg/dL Calcium 8.0 L (8.5-10.1) mg/dL AST 6 L (15-37) U/L Total Protein 6.3 L (6.4-8.2) g/dL Albumin 2.6 L (3.4-5.0) g/dL Vancomycin Trough (5.0-10.0) mcg/mL 10/24/17 Range/Units 18:37 RBC (4.50-5.90) mil/mm3 Hgb (13.0-17.0) gm/dL Hct (39.0-51.0) % RDW (11.6-17.2) % ESR (0-20) mm/hr POC Glucose 212 H (68-110) mg/dl Random Glucose (74-106) mg/dL Calcium (8.5-10.1) mg/dL AST (15-37) U/L Total Protein (6.4-8.2) g/dL Albumin (3.4-5.0) g/dL Vancomycin Trough (5.0-10.0) mcg/mL Short CBC 10/24/17 Range/Units 07:05 WBC 6.0 (4.0-11.0) th/mm3 Hgb 12.0 L (13.0-17.0) gm/dL Hct 36.1 L (39.0-51.0) % Plt Count 183 (150-450) th/mm3 BMP 10/24/17 07:05 Sodium 136 Potassium 3.5 Chloride 102 Carbon Dioxide 27.0 BUN 10 Creatinine 0.70 Calcium 8.0 L Liver Function 10/24/17 Range/Units 07:05 Total Bilirubin 0.6 (0.2-1.0) mg/dL AST 6 L (15-37) U/L ALT 12 (12-78) U/L Alkaline Phosphatase 59 (45-117) U/L Albumin 2.6 L (3.4-5.0) g/dL <Arabella Ortega - 10/24/17 20:03> Abnormal lab results 10/23/17 10/23/17 10/24/17 Range/Units 16:40 20:28 07:05 RBC (4.50-5.90) mil/mm3 Hgb (13.0-17.0) gm/dL Hct (39.0-51.0) % RDW (11.6-17.2) % ESR (0-20) mm/hr POC Glucose 139 H 115 H (68-110) mg/dl Random Glucose (74-106) mg/dL Calcium (8.5-10.1) mg/dL AST (15-37) U/L Total Protein (6.4-8.2) g/dL Albumin (3.4-5.0) g/dL Vancomycin Trough 19.9 H (5.0-10.0) mcg/mL 10/24/17 10/24/17 10/24/17 Range/Units 07:05 07:05 09:15 RBC 4.31 L (4.50-5.90) mil/mm3 Hgb 12.0 L (13.0-17.0) gm/dL Hct 36.1 L (39.0-51.0) % RDW 19.8 H (11.6-17.2) % ESR (0-20) mm/hr POC Glucose 127 H (68-110) mg/dl Random Glucose 118 H (74-106) mg/dL Calcium 8.0 L (8.5-10.1) mg/dL AST 6 L (15-37) U/L Total Protein 6.3 L (6.4-8.2) g/dL Albumin 2.6 L (3.4-5.0) g/dL Vancomycin Trough (5.0-10.0) mcg/mL 10/24/17 Range/Units 12:50 RBC (4.50-5.90) mil/mm3 Hgb (13.0-17.0) gm/dL Hct (39.0-51.0) % RDW (11.6-17.2) % ESR 50 H (0-20) mm/hr POC Glucose (68-110) mg/dl Random Glucose (74-106) mg/dL Calcium (8.5-10.1) mg/dL AST (15-37) U/L Total Protein (6.4-8.2) g/dL Albumin (3.4-5.0) g/dL Vancomycin Trough (5.0-10.0) mcg/mL Short CBC 10/24/17 Range/Units 07:05 WBC 6.0 (4.0-11.0) th/mm3 Hgb 12.0 L (13.0-17.0) gm/dL Hct 36.1 L (39.0-51.0) % Plt Count 183 (150-450) th/mm3 BMP 10/24/17 07:05 Sodium 136 Potassium 3.5 Chloride 102 Carbon Dioxide 27.0 BUN 10 Creatinine 0.70 Calcium 8.0 L Liver Function 10/24/17 Range/Units 07:05 Total Bilirubin 0.6 (0.2-1.0) mg/dL AST 6 L (15-37) U/L ALT 12 (12-78) U/L Alkaline Phosphatase 59 (45-117) U/L Albumin 2.6 L (3.4-5.0) g/dL <Alva Hicks - 10/24/17 14:39> Physical Exam Vital signs: Vital Signs 10/23/17 21:45 10/24/17 00:50 10/24/17 04:00 Temperature 98.6 F 98 F 97.9 F Pulse Rate 76 70 67 Respiratory Rate 19 20 22 Blood Pressure 140/64 135/65 128/68 Pulse Oximetry 99 98 99 10/24/17 08:00 10/24/17 12:00 10/24/17 16:00 Temperature 97.6 F 97.8 F 97.6 F Pulse Rate 81 77 82 Respiratory Rate 21 20 20 Blood Pressure 174/92 H 167/78 H 159/74 H Pulse Oximetry 98 98 94 L Intake & Output 10/24/17 10/24/17 10/25/17 06:59 18:59 06:59 Intake Total 3715 / 3715 990 / 990 Output Total 1999 Balance 1715 / 1715 990 / 990 Intake: IV 515 / 515 Vancomycin Inj 1,500 MG In NS 515 / 515 Inj 500 ML @ 250 mls/hr IV.SIG Q12H [facility] Rx#:[id number] Oral 3200 / 3200 990 / 990 Output: Urine 1999 Other: # Voids 1 7 # Bowel Movements 0 1 <Arabella Ortega - 10/24/17 20:03> Vital Signs 10/23/17 15:16 10/23/17 21:45 10/24/17 00:50 Temperature 98 F 98.6 F 98 F Pulse Rate 74 76 70 Respiratory Rate 19 19 20 Blood Pressure 136/65 140/64 135/65 Pulse Oximetry 97 99 98 10/24/17 04:00 10/24/17 08:00 10/24/17 12:00 Temperature 97.9 F 97.6 F 97.8 F Pulse Rate 67 81 77 Respiratory Rate 22 21 20 Blood Pressure 128/68 174/92 H 167/78 H Pulse Oximetry 99 98 98 Intake & Output 10/23/17 10/24/17 10/24/17 18:59 06:59 18:59 Intake Total 1475 / 1475 3715 / 3715 Output Total 1999 Balance 1475 / 1475 1715 / 1715 Intake: IV 515 / 515 515 / 515 Vancomycin Inj 1,500 MG In NS 515 / 515 515 / 515 Inj 500 ML @ 250 mls/hr IV.SIG Q12H [facility] Rx#:[id number] Oral 960 / 960 3200 / 3200 Output: Urine 1999 Other: # Voids 2 1 # Bowel Movements 1 0 <Alva Hicks - 10/24/17 14:39> Narrative: Well-appearing male, sitting comfortably in bed, in no acute distress. <Alva Hicks 10/24/17 14:39> - Routine HEENT Exam Head: Present: normocephalic, atraumatic <Alva Hicks 10/24/17 14:39> - Routine Respiratory Exam Present: CTA bilaterally <Alva Hicks 10/24/17 14:39> - Routine Cardiovascular Exam Present: RRR, murmur <KurtAlva 10/24/17 14:39> Comments: Grade 3 systolic murmur heard over the left sternal border. <MameeleanorAlva 10/24/17 14:39> - Routine Abdominal Exam Present: soft, normoactive bowel sounds. Absent: tenderness, distended <Alva Hicks 10/24/17 15:02> - Routine Skin Exam Comments: 14 cm swollen right hand that is warm to the touch and tender to palpation. The hand is less erythematous anteriorly. The posterior forearm contains some areas of erythema that were not present yesterday.The patient grimaces in pain upon supination of the right forearm. The skin is taut and patient has limited movement of the hand. Limited penetration tester strength due to tightness of skin from swelling. Radial pulses are palpable and present. Sensation to light touch still decreased on the right compared to the left hand. Patient unable to make a fist with right hand. 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 Swelling present 14 cm up his R forearm, about mid radius. Increasing erythema in the forearm posteriorly. Patient is currently afebrile. No events overnight. MRI of hand: Cellulitis of the forearm and hand, especially on the dorsal aspect without defined abscess formation. There is also an associated myositis of the distal forearm. No evidence of osteomyelitis. Xray of Hand: Negative for any fractures or trauma. Tdap vaccination: Concerns of tetanus with ongoing cellulitis. Last booster given January 2012. Cellulitis: Slightly improved but concerns for increased erythema on the forearm posteriorly. Continue on vancomycin IV for MRSA coverage. Will appreciate IDs recommendations on antibiotic coverage. Hand surgery consulted: Believes that this is cellulitis of his wrist. Consider inflammatory condition. Start on IV steroids in hopes of decreasing inflammation. Will consider using Toradol if swelling does not decrease. GI prophylaxis ordered. ESR increased from 37 to 50 today. Will order rheumatologic workup. White count remains stable at 6.0 today. Continue to monitor for increased swelling of the hand and limited ROM. Follow Up CBC in AM. Follow Up Blood Cultures: Currently no growth in 2 day. 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 Patient at increased risk of bleeding due to disorder. SCD's Only for DVT Prophylaxis. Continue current management. (3) Diabetes Code(s): E11.9 - Type 2 diabetes mellitus without complications Status: Acute Plan: Continue Novolin sliding scale for coverage. Continue to monitor Blood Glucose Values (4) Arthritis Code(s): M19.90 - Unspecified osteoarthritis, unspecified site Status: Acute Plan: Osteoarthritis of Knees. Currently Stable. Continue Current regimen. (5) Nutrition, metabolism, and development symptoms Code(s): R63.8 - Other symptoms and signs concerning food and fluid intake Status: Acute Plan: Fluids: tolerating Po Electrolytes: Monitor and replete as needed Nutrition: regular diet. GI Prophylaxis: Protonix. (6) DVT prophylaxis Status: Acute Plan: SCDs only <lAva Hicks - 10/24/17 15:04> - Attending Attestation Patient seen and examined this morning, discussed with resident team. I agree with assessment and management as documented and discussed with me. Pt seen with at bedside. He feels there is minimal improvement, except that fingers are less swollen. Will add steroids, per hand surgery recommendations. Continue vancomycin. <Arabella Ortega - 10/24/17 20:03>
[2017-10-24] MEDS: Pantoprazole Inj 40 MG Vial IV.PUSH SCH (15:06)
--- NOTE | 2017-10-24 15:49 | P.PNADD ---
Addendum to Inpatient Note Additional information: Provider was paged by nursing and responded to page at patient's bedside. Patient stated that he wanted to leave AMA after speaking to his primary care physician. The risks of leaving AMA were discussed thoroughly with the patient. There was an at length discussion about his treatment plan moving forward during his hospital stay. Patient understood the severity of his cellulitis and was agreeable to his treatment plan after discussion of his care. Patient has decided to remain in hospital for treatment. All questions, comments and concerns were answered.
--- NOTE | 2017-10-24 17:00 | P.PNPLA ---
Subjective Remarks: The patient's reports that she has noticed a significant improvement in the swelling and redness of the forearm and hand since the dose of steroids this morning. Objective Vital Signs: Vital Signs - 24 hr 10/23/17 21:45 10/24/17 00:50 10/24/17 04:00 Temperature 98.6 F 98 F 97.9 F Pulse Rate 76 70 67 Respiratory Rate 19 20 22 Blood Pressure 140/64 135/65 128/68 Pulse Oximetry 99 98 99 10/24/17 08:00 10/24/17 12:00 10/24/17 16:00 Temperature 97.6 F 97.8 F 97.6 F Pulse Rate 81 77 82 Respiratory Rate 21 20 20 Blood Pressure 174/92 H 167/78 H 159/74 H Pulse Oximetry 98 98 94 L Intake & Output 10/22/17 10/23/17 10/24/17 10/25/17 06:59 06:59 06:59 06:59 Intake Total 2245 / 2245 5190 / 5190 Output Total 1999 / 1999 Balance 2245 / 2245 3190 / 3190 Weight 83.915 kg Laboratory Results: Laboratory Results - last 24 hr 10/23/17 10/23/17 10/24/17 07:07 20:28 07:05 WBC RBC Hgb Hct MCV MCH MCHC RDW Plt Count MPV ESR Sodium Potassium Chloride Carbon Dioxide Anion Gap BUN Creatinine Estimated GFR POC Glucose 115 H Random Glucose Hemoglobin A1c 5.0 Calcium Total Bilirubin AST ALT Alkaline Phosphatase Total Protein Albumin Vancomycin Trough 19.9 H Rheumatoid Factor Scrn Rheumatoid Factor Titer 10/24/17 10/24/17 10/24/17 07:05 07:05 09:15 WBC 6.0 RBC 4.31 L Hgb 12.0 L Hct 36.1 L MCV 83.9 MCH 27.9 MCHC 33.2 RDW 19.8 H Plt Count 183 MPV 8.1 ESR Sodium 136 Potassium 3.5 Chloride 102 Carbon Dioxide 27.0 Anion Gap 7 BUN 10 Creatinine 0.70 Estimated GFR Greater than 89 POC Glucose 127 H Random Glucose 118 H Hemoglobin A1c Calcium 8.0 L Total Bilirubin 0.6 AST 6 L ALT 12 Alkaline Phosphatase 59 Total Protein 6.3 L Albumin 2.6 L Vancomycin Trough Rheumatoid Factor Scrn Rheumatoid Factor Titer 10/24/17 10/24/17 10/24/17 11:48 12:50 12:50 WBC RBC Hgb Hct MCV MCH MCHC RDW Plt Count MPV ESR 50 H Sodium Potassium Chloride Carbon Dioxide Anion Gap BUN Creatinine Estimated GFR POC Glucose 100 Random Glucose Hemoglobin A1c Calcium Total Bilirubin AST ALT Alkaline Phosphatase Total Protein Albumin Vancomycin Trough Rheumatoid Factor Scrn Negative Rheumatoid Factor Titer Not Reportable Microbiology 10/22/17 10:25 Aerobic Blood Culture - Preliminary Blood - Peripheral No growth in 2 days Anaerobic Blood Culture - Preliminary No growth in 2 days 10/22/17 10:30 Aerobic Blood Culture - Preliminary Blood - Peripheral No growth in 2 days Anaerobic Blood Culture - Preliminary No growth in 2 days Result Diagrams: 10/24/17 07:05 10/24/17 07:05 Exam Findings: There is less redness and swelling of the right forearm and hand with improvement in range of motion. Assessment and Plan - Diagnosis (1) Cellulitis of hand, right Status: Acute Code(s): L03.113 - Cellulitis of right upper limb - Plan Impression: The patient may have an inflammatory condition. Plan: Continue the steroids and monitor the patient for improvement.
[2017-10-24] MEDS: Temazepam 15 MG Capsule PO PRN (21:16)
[2017-10-24] MEDS ORDERED: Vancomycin Inj 1,000 MG in Sodium Chlor 0.9% Inj 250 ML IV.SIG SCH (23:00)
--- NOTE | 2017-10-24 23:36 | P.CONID ---
History of Present Illness Service: ID Consult date: 10/24/17 Requesting Physician: Alva Hicks Reason for Consult: cellulitis R hand Primary Care Provider: Yonatan Reid History of Present Illness: 72 yo male presened with 1-2 days of acute onset swellling pain and redness of his R hand spreading to forearm Denies fever or chills No leukocytosis MRI showed no abscess, or osteo He was started on vancomycin Review of Systems All other systems reviewed negative except as stated in HPI PMFSH - History History Provided By: Patient - Medical History Medical History: Medical History (Last Updated 10/22/17 @ 10:10 by Porsha Diehl) Myocardial infarction Hvvgy-Pyymj-Ksgte disease - Surgical History Surgical History: Surgical History (Last Updated 10/22/17 @ 10:10 by Porsha Diehl) History of back surgery - Tobacco History Second Hand Smoke Exposure: No Smoking Status: Never smoker - Alcohol History How Often Do You Have a Drink Containing Alcohol: 2 to 4 times a month - Substance Use History Substance History: No History of Abuse - Travel History Recent Travel in the [place] Within the Last 8 Weeks: No Recent Travel Out of the Country Within the Last 8 Weeks: No - Immunization History Tetanus Immunization: <5 Years Hx Influenza Vaccine This Season: No Medications and Allergies Active Medications: Active Medications Acetaminophen (Tylenol) 650 mg PO Q6HR PRN PRN Reason: PAIN SCALE 1 TO 2 Al Hydroxide/Mg Hydroxide (Milk Of Magnesia Liq) 30 ml PO Q12H PRN PRN Reason: Mild Constipation Bisacodyl (Dulcolax Supp) 10 mg RECTAL DAILY PRN PRN Reason: SEVERE CONSITIPATION Dextrose (D50w Vial) 50 ml IV.PUSH UNSCH PRN PRN Reason: PER HYPOGLYCEMIA PROTOCOL Glucagon (Glucagon Inj) 1 mg OTHER PRN PRN PRN Reason: for Hypoglycemia Protocol Vancomycin HCl 1,000 mg/ (Sodium Chloride) 250 mls @ 250 mls/hr IV.SIG Q12H [facility] Pharmacy Profile Note (Vancomycin Consult Pharmacy) 0 mls @ 0 mls/hr OTHER UNSCH OMI Insulin Human Regular (Novolin R Correctional Sugar Inj) 0 units SQ ACHS AND 3AM OMI; Protocol Last Admin: 10/24/17 23:30 Dose: Not Given Lactulose (Lactulose Liq) 30 ml PO DAILY PRN PRN Reason: SEVERE CONSITIPATION Miscellaneous Information ([facility] Ordered Lab Info) 0 each OTHER ONCE ONE Stop: 10/26/17 10:46 Morphine Sulfate (Morphine Inj) 2 mg IV.PUSH Q3H PRN PRN Reason: BREAKTHROUGH PAIN Naloxone HCl (Narcan Inj) 0.4 mg IV.PUSH UNSCH PRN PRN Reason: SEE LABEL COMMENTS Naloxone HCl (Narcan Inj) 0.4 mg IV.PUSH UNSCH PRN PRN Reason: SEE LABEL COMMENTS Oxycodone/Acetaminophen (Percocet 10/325 Mg) 1 tab PO Q6H PRN PRN Reason: PAIN SCALE 6 TO 10 Last Admin: 10/24/17 15:05 Dose: 1 tab Oxycodone/Acetaminophen (Percocet 5/325 Mg) 1 tab PO Q6H PRN PRN Reason: PAIN SCALE 3 TO 5 Oxycodone/Acetaminophen (Percocet 10/325 Mg) 1 tab PO Q4H PRN PRN Reason: Acute Pain Last Admin: 10/24/17 21:14 Dose: 1 tab Pantoprazole Sodium (Protonix Inj) 40 mg IV.PUSH DAILY [facility] Last Admin: 10/24/17 15:06 Dose: 40 mg Senna/Docusate Sodium (Leslie-Colace) 1 tab PO BID [facility] Last Admin: 10/24/17 21:13 Dose: Not Given Sennosides (Senokot) 17.2 mg PO Q12H PRN PRN Reason: Moderate Constipation Sodium Chloride (Ns Flush) 2 ml IV.FLUSH BID [facility] Last Admin: 10/24/17 21:14 Dose: 2 ml Sodium Chloride (Ns Flush) 2 ml IV.FLUSH PRN PRN PRN Reason: FLUSH AFTER USING IV ACCESS Temazepam (Restoril) 15 mg PO HS PRN PRN Reason: INSOMNIA Last Admin: 10/24/17 21:16 Dose: 15 mg Allergies Allergy/AdvReac Type Severity Reaction Status Date / Time daptomycin [From Cubicin] Allergy Difficulty Verified 10/22/17 10:08 Breathing Home Medications Medication Instructions Recorded Confirmed Type No Known Home Medications 10/22/17 10/22/17 History Exam Vital signs: Vital Signs 10/24/17 00:50 10/24/17 04:00 10/24/17 08:00 Temperature 98 F 97.9 F 97.6 F Pulse Rate 70 67 81 Respiratory Rate 20 22 21 Blood Pressure 135/65 128/68 174/92 H Pulse Oximetry 98 99 98 10/24/17 12:00 10/24/17 16:00 Temperature 97.8 F 97.6 F Pulse Rate 77 82 Respiratory Rate 20 20 Blood Pressure 167/78 H 159/74 H Pulse Oximetry 98 94 L Intake & Output 10/24/17 10/24/17 10/25/17 06:59 18:59 06:59 Intake Total 3715 / 3715 990 / 990 Output Total 1999 Balance 1715 / 1715 990 / 990 Intake: IV 515 / 515 Vancomycin Inj 1,500 MG In NS 515 / 515 Inj 500 ML @ 250 mls/hr IV.SIG Q12H [facility] Rx#:[id number] Oral 3200 / 3200 990 / 990 Output: Urine 1999 Other: # Voids 1 7 # Bowel Movements 0 1 - Constitutional no acute distress, obese - Routine HEENT Exam Head: Present: normocephalic, atraumatic Eye: Present: EOMI, PERRL ENT: Present: mucous membranes moist, oropharynx clear - Routine Neck Exam Present: supple, full ROM - Routine Respiratory Exam Present: decreased breath sounds, CTA bilaterally - Routine Cardiovascular Exam Present: RRR, S1, S2 - Routine Abdominal Exam Present: soft, normoactive bowel sounds, organomegaly (NONE) - Routine Extremities Exam Comments: no cyanosys, clubbing or edema STATUS LOCALIS: markedly swollen R hand Results - Labs CBC & Chem 7: 10/24/17 07:05 10/24/17 07:05 Labs: Laboratory Results - last 24 hr 10/24/17 10/24/17 10/24/17 07:05 07:05 07:05 WBC 6.0 RBC 4.31 L Hgb 12.0 L Hct 36.1 L MCV 83.9 MCH 27.9 MCHC 33.2 RDW 19.8 H Plt Count 183 MPV 8.1 ESR Sodium 136 Potassium 3.5 Chloride 102 Carbon Dioxide 27.0 Anion Gap 7 BUN 10 Creatinine 0.70 Estimated GFR Greater than 89 POC Glucose Random Glucose 118 H Calcium 8.0 L Total Bilirubin 0.6 AST 6 L ALT 12 Alkaline Phosphatase 59 Total Protein 6.3 L Albumin 2.6 L Vancomycin Trough 19.9 H Rheumatoid Factor Scrn Rheumatoid Factor Titer 10/24/17 10/24/17 10/24/17 09:15 11:48 12:50 WBC RBC Hgb Hct MCV MCH MCHC RDW Plt Count MPV ESR 50 H Sodium Potassium Chloride Carbon Dioxide Anion Gap BUN Creatinine Estimated GFR POC Glucose 127 H 100 Random Glucose Calcium Total Bilirubin AST ALT Alkaline Phosphatase Total Protein Albumin Vancomycin Trough Rheumatoid Factor Scrn Rheumatoid Factor Titer 10/24/17 10/24/17 10/24/17 12:50 18:37 20:25 WBC RBC Hgb Hct MCV MCH MCHC RDW Plt Count MPV ESR Sodium Potassium Chloride Carbon Dioxide Anion Gap BUN Creatinine Estimated GFR POC Glucose 212 H 210 H Random Glucose Calcium Total Bilirubin AST ALT Alkaline Phosphatase Total Protein Albumin Vancomycin Trough Rheumatoid Factor Scrn Negative Rheumatoid Factor Titer Not Reportable Assessment and Plan - Plan R hand cellulitis cont vcancomtcin follow clincally
[2017-10-25] MEDS: oxyCODONE/Acetaminophen 10/325 Tablet PO PRN ×2 (01:43→06:04)
[2017-10-25] MEDS: Insulin NovoLIN Regular Correctional Sugar Inj SQ SCH ×2 (04:32→10:54)
[2017-10-25 08:14] LABS: Baso % (Auto) 0.1 % (0.0-2.0); Hematocrit 35.9 % (39.0-51.0); Hemoglobin 12.1 gm/dL (13.0-17.0); Lymph # (Auto) 0.4 th/mm3 (1.0-4.8); Lymph % (Auto) 4.5 % (9.0-44.0); Mean Corpuscular HGB Conc 33.7 % (32.0-36.0); Mean Corpuscular Hemoglobin 28.1 pg (27.0-34.0); Mean Corpuscular Volume 83.5 fL (80.0-100.0); Mean Platelet Volume 8.1 fL (7.0-11.0); Mono # (Auto) 0.4 th/mm3 (0.0-0.9); Mono % (Auto) 4.5 % (0.0-8.0); Neut # (Auto) 7.4 th/mm3 (1.8-7.7); Neut % (Auto) 90.9 % (16.0-70.0); Platelet Count 204 th/mm3 (150-450); White Blood Count 8.1 th/mm3 (4.0-11.0)
[2017-10-25 08:36] LABS: Albumin 2.6 g/dL (3.4-5.0); Anion Gap 7 meq/L (5-15); Aspartate Aminotransferase 7 U/L (15-37); Blood Urea Nitrogen 14 mg/dL (7-18); Calcium 8.4 mg/dL (8.5-10.1); Carbon Dioxide 28.6 meq/L (21.0-32.0); Chloride 102 meq/L (98-107); Glomerular Filtration Rate Greater Than 89 mL/min (>89); Glucose,Random 167 mg/dL (74-106); Potassium 3.6 meq/L (3.5-5.1); Sodium 138 meq/L (136-145)
[2017-10-25 08:39] LABS: Alanine Aminotransferase 13 U/L (12-78); Alkaline Phosphatase 62 U/L (45-117); Total Protein 6.5 g/dL (6.4-8.2)
[2017-10-25 08:56] LABS: Ovalocytes 1+; Platelet Estimate Normal (Normal); Platelet Morphology Normal (Normal)
[2017-10-25] MEDS ORDERED: MethylPREDNISolone Sod Succinate Inj 40 MG/ML Vial IV.PUSH SCH (10:00)
--- NOTE | 2017-10-25 10:04 | P.PNFP ---
Subjective Interval history: Patient was examined and seen at bedside this morning. Patient was smiling this morning and excited to report that his hand is doing a lot better. He says that the pain in his right arm has gotten better, and the swelling has gone down tremendously. He is able to move his arm with minimal pain. He believes the steroids have helped with decreasing the inflammation. He is wondering if he can get multiple doses today and possibly be discharged today. He denies any fevers, chest pain, shortness of breath, abdominal pain, problems with urination or defecation. All questions and concerns were answered at bedside. <Alva Hicks - 10/25/17 10:08> Results - Labs Result diagrams: 10/25/17 07:23 10/25/17 07:23 <Arabella Ortega - 10/25/17 16:47> Abnormal lab results 10/24/17 10/24/17 10/25/17 Range/Units 18:37 20:25 01:46 RBC (4.50-5.90) mil/mm3 Hgb (13.0-17.0) gm/dL Hct (39.0-51.0) % RDW (11.6-17.2) % Neut % (Auto) (16.0-70.0) % Lymph % (Auto) (9.0-44.0) % Lymph # (Auto) (1.0-4.8) th/mm3 Ovalocytes (None) POC Glucose 212 H 210 H 195 H (68-110) mg/dl Random Glucose (74-106) mg/dL Calcium (8.5-10.1) mg/dL AST (15-37) U/L Albumin (3.4-5.0) g/dL 10/25/17 10/25/17 10/25/17 Range/Units 07:23 07:23 09:35 RBC 4.30 L (4.50-5.90) mil/mm3 Hgb 12.1 L (13.0-17.0) gm/dL Hct 35.9 L (39.0-51.0) % RDW 19.0 H (11.6-17.2) % Neut % (Auto) 90.9 H (16.0-70.0) % Lymph % (Auto) 4.5 L (9.0-44.0) % Lymph # (Auto) 0.4 L (1.0-4.8) th/mm3 Ovalocytes 1+ H (None) POC Glucose 191 H (68-110) mg/dl Random Glucose 167 H (74-106) mg/dL Calcium 8.4 L (8.5-10.1) mg/dL AST 7 L (15-37) U/L Albumin 2.6 L (3.4-5.0) g/dL Short CBC 10/25/17 Range/Units 07:23 WBC 8.1 (4.0-11.0) th/mm3 Hgb 12.1 L (13.0-17.0) gm/dL Hct 35.9 L (39.0-51.0) % Plt Count 204 (150-450) th/mm3 BMP 10/25/17 07:23 Sodium 138 Potassium 3.6 Chloride 102 Carbon Dioxide 28.6 BUN 14 Creatinine 0.71 Calcium 8.4 L Liver Function 10/25/17 Range/Units 07:23 Total Bilirubin 0.4 (0.2-1.0) mg/dL AST 7 L (15-37) U/L ALT 13 (12-78) U/L Alkaline Phosphatase 62 (45-117) U/L Albumin 2.6 L (3.4-5.0) g/dL <Arabella Ortega - 10/25/17 16:47> Abnormal lab results 10/24/17 10/24/17 10/24/17 Range/Units 12:50 18:37 20:25 RBC (4.50-5.90) mil/mm3 Hgb (13.0-17.0) gm/dL Hct (39.0-51.0) % RDW (11.6-17.2) % Neut % (Auto) (16.0-70.0) % Lymph % (Auto) (9.0-44.0) % Lymph # (Auto) (1.0-4.8) th/mm3 Ovalocytes (None) ESR 50 H (0-20) mm/hr POC Glucose 212 H 210 H (68-110) mg/dl Random Glucose (74-106) mg/dL Calcium (8.5-10.1) mg/dL AST (15-37) U/L Albumin (3.4-5.0) g/dL 10/25/17 10/25/17 10/25/17 Range/Units 01:46 07:23 07:23 RBC 4.30 L (4.50-5.90) mil/mm3 Hgb 12.1 L (13.0-17.0) gm/dL Hct 35.9 L (39.0-51.0) % RDW 19.0 H (11.6-17.2) % Neut % (Auto) 90.9 H (16.0-70.0) % Lymph % (Auto) 4.5 L (9.0-44.0) % Lymph # (Auto) 0.4 L (1.0-4.8) th/mm3 Ovalocytes 1+ H (None) ESR (0-20) mm/hr POC Glucose 195 H (68-110) mg/dl Random Glucose 167 H (74-106) mg/dL Calcium 8.4 L (8.5-10.1) mg/dL AST 7 L (15-37) U/L Albumin 2.6 L (3.4-5.0) g/dL 10/25/17 Range/Units 09:35 RBC (4.50-5.90) mil/mm3 Hgb (13.0-17.0) gm/dL Hct (39.0-51.0) % RDW (11.6-17.2) % Neut % (Auto) (16.0-70.0) % Lymph % (Auto) (9.0-44.0) % Lymph # (Auto) (1.0-4.8) th/mm3 Ovalocytes (None) ESR (0-20) mm/hr POC Glucose 191 H (68-110) mg/dl Random Glucose (74-106) mg/dL Calcium (8.5-10.1) mg/dL AST (15-37) U/L Albumin (3.4-5.0) g/dL Short CBC 10/25/17 Range/Units 07:23 WBC 8.1 (4.0-11.0) th/mm3 Hgb 12.1 L (13.0-17.0) gm/dL Hct 35.9 L (39.0-51.0) % Plt Count 204 (150-450) th/mm3 BMP 10/25/17 07:23 Sodium 138 Potassium 3.6 Chloride 102 Carbon Dioxide 28.6 BUN 14 Creatinine 0.71 Calcium 8.4 L Liver Function 10/25/17 Range/Units 07:23 Total Bilirubin 0.4 (0.2-1.0) mg/dL AST 7 L (15-37) U/L ALT 13 (12-78) U/L Alkaline Phosphatase 62 (45-117) U/L Albumin 2.6 L (3.4-5.0) g/dL <Luigi Hicksa - 10/25/17 10:04> Physical Exam Vital signs: Vital Signs 10/24/17 21:50 10/25/17 01:00 10/25/17 04:45 Temperature 98.1 F 98 F 98 F Pulse Rate 67 66 69 Respiratory Rate 17 18 19 Blood Pressure 120/65 130/60 117/63 Pulse Oximetry 96 97 96 10/25/17 08:00 10/25/17 12:00 Temperature 97.3 F L 98 F Pulse Rate 90 80 Respiratory Rate 20 19 Blood Pressure 120/71 125/70 Pulse Oximetry 96 97 Intake & Output 10/24/17 10/25/17 10/25/17 18:59 06:59 18:59 Intake Total 2314 Balance 2314 / 2314 Weight 84 kg Intake: Oral 2314 Other: # Voids 3 Date of Last Bowel Movement 10/25/17 # Bowel Movements 0 <Arabella Ortega - 10/25/17 16:47> Vital Signs 10/24/17 12:00 10/24/17 16:00 10/24/17 21:50 Temperature 97.8 F 97.6 F 98.1 F Pulse Rate 77 82 67 Respiratory Rate 20 20 17 Blood Pressure 167/78 H 159/74 H 120/65 Pulse Oximetry 98 94 L 96 10/25/17 01:00 10/25/17 04:45 Temperature 98 F 98 F Pulse Rate 66 69 Respiratory Rate 18 19 Blood Pressure 130/60 117/63 Pulse Oximetry 97 96 Intake & Output 10/24/17 10/25/17 10/25/17 18:59 06:59 18:59 Intake Total 2314 Balance 2314 / 2314 Weight 84 kg Intake: Oral 2314 Other: # Voids 3 # Bowel Movements 0 <Alva Hicks 10/25/17 10:04> Narrative: Well-appearing man, smiling and sitting comfortably in bed, in no acute distress. <Alva Hicks 10/25/17 10:08> - Routine HEENT Exam Head: Present: normocephalic, atraumatic <Alva Hicks 10/25/17 10:08> - Routine Respiratory Exam Present: CTA bilaterally <Alva Hicks 10/25/17 10:08> - Routine Cardiovascular Exam Present: RRR, murmur <Alva Hicks 10/25/17 10:08> Comments: Grade 3 systolic murmur heard over the left sternal border. <Alva Hicks 10/25/17 10:08> - Routine Abdominal Exam Present: soft, normoactive bowel sounds. Absent: tenderness, distended <Alva Hicks 10/25/17 10:08> - Routine Skin Exam Comments: 10 cm swollen right forearm that is only warm to the touch over the hand. Mildly tender to palpation. The hand is less erythematous anteriorly and posteriorly today. Patient has no pain with supination of the right forearm. Physician General Internal Medicine strength is increased to 5 out of 5. Patient has regained some movements of the fingers. Radial pulses are palpable. Sensation to light touch on right forearm has increased compared to previous exams. Patient able to make a fist with right hand. 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 Swelling present 10 cm up his R forearm. Patient is currently afebrile. No events overnight. MRI of hand: Cellulitis of the forearm and hand, especially on the dorsal aspect without defined abscess formation. There is also an associated myositis of the distal forearm. No evidence of osteomyelitis. Xray of Hand: Negative for any fractures or trauma. Tdap vaccination: Concerns of tetanus with ongoing cellulitis. Last booster given January 2012. Hand surgery consulted: Believes that this is cellulitis of his wrist. Consider inflammatory condition. 10/25 Cellulitis: Improving status post IV steroids given yesterday. Will continue Solu-Medrol IV 40 mg, 3 times daily. Consider switching to p.o. tomorrow if swelling improves today. Continue on vancomycin IV for MRSA coverage. Appreciate IDs recommendations on antibiotic coverage. GI prophylaxis ordered. ESR increased from 37 to 50 yesterday. Rheumatoid factor negative. MAGED screen still pending. White count remains stable at 8.1 today. Continue to monitor for increased swelling of the hand and limited ROM. Follow Up CBC in AM. Follow Up Blood Cultures: Currently no growth in 2 days. 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 Patient at increased risk of bleeding due to disorder. SCD's Only for DVT Prophylaxis. Continue current management. (3) Diabetes Code(s): E11.9 - Type 2 diabetes mellitus without complications Status: Acute Plan: Continue Novolin sliding scale for coverage. Continue to monitor Blood Glucose Values (4) Arthritis Code(s): M19.90 - Unspecified osteoarthritis, unspecified site Status: Acute Plan: Osteoarthritis of Knees. Currently Stable. Continue Current regimen. (5) Nutrition, metabolism, and development symptoms Code(s): R63.8 - Other symptoms and signs concerning food and fluid intake Status: Acute Plan: Fluids: tolerating Po Electrolytes: Monitor and replete as needed Nutrition: regular diet. GI Prophylaxis: Protonix. (6) DVT prophylaxis Status: Acute Plan: SCDs only <Alva Hicks - 10/25/17 10:42> - Attending Attestation Patient seen and examined this morning, discussed with resident team. I agree with assessment and management as documented and discussed with me. Hand is much improved. Discharge home today, with bactrim, clinda, lactobacillus, and prednisone. <Arabella Ortega - 10/25/17 16:47>
[2017-10-25] MEDS: Senna/Docusate Sodium 8.6/50 MG Tablet PO SCH (10:55)
[2017-10-25] MEDS: Pantoprazole Inj 40 MG Vial IV.PUSH SCH (10:56)
--- NOTE | 2017-10-26 08:12 | P.DS ---
Date of admission: 10/22/17 20:46 Primary care physician: Yonatan Reid Brief History from admission: Shady is a pleasant 72 year old male with PMH of MRSA infection of L abdomen, Diabetes and Os[place] Rendu Howard coming in with complaints of R arm pain. 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 Once he was finished cooking (cooked for 4 hours), he couldn't roller picker the skillet with his right hand. The hand was swollen on night and the swelling increased everyday up his forearm. Today the swelling is up to his mid radius region. He describes the pain as sharp constant pain and rates it a 7/10 in severity. The pain seems to be constant but is aggravated when trying to use his fingers to roller picker things and hand movements. The pain is relieved with ice pack applications. He has tried Aleve and Biofreeze with no relief. Denies any trauma to the R arm. Patient had some episodes of nausea and vomiting for the past two days. A couple times both days. Unsure of the color of emesis. He also said that he had an iron shot on afternoon. ROS positive for chills. Denies any fever, night sweats, chest pain, shortness of breath, ab pain , urinary symptoms. DS: Diagnosis - Discharge Diagnosis (1) Cellulitis of hand, right Status: Acute (2) Oogav-Trtcw-Zprgf disease Status: Acute (3) Diabetes Status: Acute (4) Arthritis Status: Acute (5) Nutrition, metabolism, and development symptoms Status: Acute (6) DVT prophylaxis Status: Acute DS: Medications - Discharge Medications Prescriptions: clindamycin HCl [Cleocin HCl] 300 mg PO QID 12 Days #24 cap Lactobacillus acidophilus 10 mg PO DAILY #30 cap prednisone 20 mg PO BID 4 Days #8 tab sulfamethoxazole-trimethoprim [Bactrim DS] 1 tab PO BID 12 Days #24 tab DS: Summary Hospital Course: 72-year-old male past medical history of previous MRSA infection admitted for R hand cellulitis, placed on Vancomycin IV. MRI of hand showed cellulitis with minimal myositis. Hand surgery was consulted and signed off on the patient, with recommendations to continue antibiotics and to start IV steroids to decrease inflammation. Infectious disease was consulted and advised to continue antibiotic regimen and steroids. Patient improved over the course of the hospitalization with the addition of IV steroids. Patient was discharged on clindamycin 300 mg 4 times daily 12 days. Bactrim DS twice daily for 12 days. Prednisone 10 mg twice daily for 4 days. Lactobacillus 10 mg p.o. daily. - Time Spent with Patient Total time spent providing and/or coordinating discharge services: - Quality: VTE Deep Vein Thrombosis/Pulmonary Embolism Present on Admission: No Exam Vital signs: Vital Signs 10/25/17 12:00 Temperature 98 F Pulse Rate 80 Respiratory Rate 19 Blood Pressure 125/70 Pulse Oximetry 97 Intake & Output 10/25/17 10/26/17 10/26/17 18:59 06:59 18:59 Other: Date of Last Bowel Movement 10/25/17 - Constitutional no acute distress - Routine HEENT Exam Head: Present: normocephalic, atraumatic - Routine Respiratory Exam Present: CTA bilaterally - Routine Cardiovascular Exam Present: RRR, murmur Comments: Grade 3 systolic murmur heard over the left sternal border. - Routine Abdominal Exam Present: soft, normoactive bowel sounds. Absent: tenderness, distended - Routine Skin Exam Comments: 10 cm swollen right forearm that is only warm to the touch over the hand. Mildly tender to palpation. The hand is less erythematous anteriorly and posteriorly today. Patient has no pain with supination of the right forearm. Finance Lecturer strength is increased to 5 out of 5. Patient has regained some movements of the fingers. Radial pulses are palpable. Sensation to light touch on right forearm has increased compared to previous exams. Patient able to make a fist with right hand. Results Procedures completed during hospitalization: none Labs on day of discharge: Labs from last 24 hours 10/25/17 10/25/17 10/25/17 09:35 07:23 07:23 WBC 8.1 RBC 4.30 L Hgb 12.1 L Hct 35.9 L MCV 83.5 MCH 28.1 MCHC 33.7 RDW 19.0 H Plt Count 204 MPV 8.1 Prelim Diff (Auto) Slide review pending Neut % (Auto) 90.9 H Lymph % (Auto) 4.5 L [place] % (Auto) 4.5 Eos % (Auto) 0.0 Baso % (Auto) 0.1 Neut # (Auto) 7.4 Lymph # (Auto) 0.4 L [place] # (Auto) 0.4 Eos # (Auto) 0.0 Baso # (Auto) 0.0 WBC Differential . Diff Scan Auto diff confirmed Differential Comment . Platelet Estimate Normal Platelet Morphology Normal Ovalocytes 1+ H Sodium 138 Potassium 3.6 Chloride 102 Carbon Dioxide 28.6 Anion Gap 7 BUN 14 Creatinine 0.71 Estimated GFR Greater than 89 POC Glucose 191 H Random Glucose 167 H Calcium 8.4 L Total Bilirubin 0.4 AST 7 L ALT 13 Alkaline Phosphatase 62 Total Protein 6.5 Albumin 2.6 L MAGED Screen 10/24/17 12:50 WBC RBC Hgb Hct MCV MCH MCHC RDW Plt Count MPV Prelim Diff (Auto) Neut % (Auto) Lymph % (Auto) [place] % (Auto) Eos % (Auto) Baso % (Auto) Neut # (Auto) Lymph # (Auto) [place] # (Auto) Eos # (Auto) Baso # (Auto) WBC Differential Diff Scan Differential Comment Platelet Estimate Platelet Morphology Ovalocytes Sodium Potassium Chloride Carbon Dioxide Anion Gap BUN Creatinine Estimated GFR POC Glucose Random Glucose Calcium Total Bilirubin AST ALT Alkaline Phosphatase Total Protein Albumin MAGED Screen Neg Preliminary micro results at discharge 10/22/17 10:25 Aerobic Blood Culture - Preliminary Blood - Peripheral No growth in 3 days Anaerobic Blood Culture - Preliminary No growth in 3 days 10/22/17 10:30 Aerobic Blood Culture - Preliminary Blood - Peripheral No growth in 3 days Anaerobic Blood Culture - Preliminary No growth in 3 days - Impressions ITS Impressions Forearm MRI 10/22/17 00:00 CONCLUSION: 1. Cellulitis of the forearm and hand, especially on the dorsal aspect without definite abscess formation. There is also an associated myositis of the distal forearm. No evidence for osteomyelitis. 2. 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 Hand X-Ray 10/22/17 10:14 CONCLUSION: 1. Soft tissue swelling over the dorsum of the hand with no radiopaque foreign body. 2. Osteoarthritic change. Discharge Plan - Discharge Disposition Patient Disposition: 01 Discharge Home - Discharge Condition Condition: Stable - Discharge Order Discharge Orders: Discharge Order (Routine); Ordered 10/25/17 Ordered By: Alva Hicks - Physicians Team Attending Provider: Arabella Ortega Other Providers: Sherley Hopkins MD ; Mariola Cooper MD
[2017-10-26] MEDS ORDERED: Pharmacy Ordered Lab Info OTHER ONE (10:45)
== END 2017-10-25 13:20 | disposition home or self-care (01) ==
LOC: NEPE 09:43 → NEDA 12:07 → INTOOBSV 12:07 → N05 14:00
PROVIDERS: ADMIT Family Medicine; ATTEND Family Medicine